=== PATIENT | male | born 1950 | race African-American/Black ===

== ENCOUNTER 2016-07-25 13:59 | Observation (INO) | payer MEDICARE, BC ==
[2016-07-25] MEDS ORDERED: Aspirin Low Dose CHEW TAB* 81 MG ONE (14:16)
[2016-07-25] MEDS ORDERED: Aspirin Low Dose CHEW TAB* 81 MG PO ONE ×2 (14:17→14:18)
[2016-07-25 14:22] LABS: Hematocrit 42 % (42-52); Mean Corpuscular HGB Conc 33 g/dl (31-36); Mean Corpuscular Hemoglobin 27 pg (27-31); Mean Corpuscular Volume 81 fL (80-94); Mean Platelet Volume 10 um3 (7.4-10.4); Red Blood Count 5.19 10^6/ul (4.0-5.4); Red Cell Distribution Width 14 % (10.5-15); White Blood Count 7.9 10^3/ul (3.5-10.8)
--- NOTE | 2016-07-25 14:28 | RAD ---
HISTORY: Chest pain COMPARISONS: None VIEWS:1: Single frontal portable view of the chest at 2:15 PM FINDINGS: LINES AND TUBES: None. CARDIOMEDIASTINAL SILHOUETTE: The cardiomediastinal silhouette is normal for portable technique. PLEURA: The costophrenic angles are sharp. No pleural abnormalities are noted. LUNG PARENCHYMA: The lungs are clear. ABDOMEN: The upper abdomen is clear. There is no subphrenic gas. BONES AND SOFT TISSUES: No bone or soft tissue abnormalities are noted. IMPRESSION: NO ACTIVE CARDIOPULMONARY DISEASE.
[2016-07-25 14:37] LABS: Albumin 4.8 g/dL (3.2-5.2); BUN/Creatinine Ratio 16.7 (8-20); Calcium 10.3 mg/dL (8.6-10.3); EGFR Non-African American 46.7 (>60); Globulin 3.2 g/dL (2-4); Potassium 3.8 mmol/L (3.5-5.0); Total Bilirubin 0.5 mg/dL (0.2-1.0)
[2016-07-25 14:39] LABS: Troponin I 0.01 ng/mL (<0.04)
[2016-07-25 15:17] LABS: Urine Bilirubin Negative (Negative); Urine Glucose Negative (Negative); Urine Nitrite Negative (Negative)
--- NOTE | 2016-07-25 15:21 | ED ---
mango Servin Timothy, scribed for Angelo Nevarez MD on 07/25/16 at 1416 . HPI Chest Pain - HPI Summary HPI Summary: Vishal Hook is a 65 yo male presenting to [facility] with constant 3/10 chest pressure for the past 2 weeks, intermittently increasing and decreasing. He was recommended to present to [facility] for evaluation by his cylinder tester. He denies any N/V/D or other Sx. He was medicated with NTG with some relief. His MHx includes HTN, gout. - History of Current Complaint Chief Complaint: EDChestPainROMI Time Seen by Provider: 07/25/16 14:07 Hx Obtained From: Patient Onset/Duration: Started Weeks Ago, Still Present Timing: Constant, Intermittent - increasing and decreasing pain Initial Severity: Moderate Current Severity: Moderate Pain Intensity: 3 Pain Scale Used: 0-10 Numeric Chest Pain Location: Diffuse Chest Pain Radiates: No Character: Pressure/Squeezing Aggravating Factor(s): Nothing Alleviating Factor(s): Nothing Associated Signs and Symptoms: Positive: Chest Pain. Negative: Nausea, Vomiting - Allergy/Home Medications Allergies/Adverse Reactions: Allergies Allergy/AdvReac Type Severity Reaction Status Date / Time No Known Allergies Allergy Verified 11/03/14 08:04 PMH/Surg Hx/FS Hx/Imm Hx Endocrine/Hematology History: Denies: Hx Diabetes Cardiovascular History: Reports: Hx Hypertension Denies: Hx Angina, Hx Coronary Artery Disease, Hx Hypercholesterolemia, Hx Myocardial Infarction, Hx Valvular Heart Disease Respiratory History: Denies: Hx Asthma, Hx Chronic Obstructive Pulmonary Disease (COPD) GI History: Reports: Other GI Disorders - GOUT-ON MEDICATION FOR Musculoskeletal History: Reports: Other Musculoskeletal History - GOUT Sensory History: Reports: Hx Cataracts - BILATERAL Denies: Hx Contacts or Glasses, Hx Hearing Aid Opthamlomology History: Reports: Hx Cataracts - BILATERAL Denies: Hx Contacts or Glasses - Surgical History Surgery Procedure, Year, and Place: ENDOSCOPY WITH SEDATION Hx Anesthesia Reactions: No Infectious Disease History: No Infectious Disease History: Denies: Traveled Outside the [place] in Last 30 Days - Family History Known Family History: Positive: Cardiac Disease - Social History Alcohol Use: Occasionally Substance Use Type: Reports: None Smoking Status (MU): Never Smoked Tobacco Review of Systems Constitutional: Negative Eyes: Negative ENT: Negative Positive: Chest Pain Respiratory: Negative Gastrointestinal: Negative Genitourinary: Negative Musculoskeletal: Negative Skin: Negative Neurological: Negative Psychological: Normal All Other Systems Reviewed And Are Negative: Yes Physical Exam - Summary Physical Exam Summary: VITAL SIGNS: Reviewed. GENERAL: Patient is a well developed and nourished male who is lying comfortable in the stretcher. Patient is not in any acute respiratory distress. HEAD AND FACE: No signs of trauma. No ecchymosis, hematomas or skull depressions. No sinus tenderness. EYES: PERRLA, EOMI x 2, No injected conjunctiva, no nystagmus. EARS: Hearing grossly intact. Ear canals and tympanic membranes are within normal limits. MOUTH: Oropharynx within normal limits. NECK: Supple, trachea is midline, no adenopathy, no JVD, no carotid bruit, no c- spine tenderness, neck with full ROM. CHEST: Symmetric, no tenderness at palpation LUNGS: Clear to auscultation bilaterally. No wheezing or crackles. CVS: Regular rate and rhythm, S1 and S2 present, no murmurs or gallops appreciated. ABDOMEN: Soft, non-tender. No signs of distention. No rebound no guarding, and no masses palpated. Bowel sounds are normal. EXTREMITIES: FROM in all major joints, no edema, no cyanosis or clubbing. NEURO: Alert and oriented x 3. No acute neurological deficits. Speech is normal and follows commands. SKIN: Dry and warm Triage Information Reviewed: Yes Vital Signs On Initial Exam: Initial Vitals Temp Pulse Resp BP Pulse Ox 98.6 F 71 20 126/62 100 07/25/16 14:00 07/25/16 14:00 07/25/16 14:00 07/25/16 14:00 07/25/16 14:00 Vital Signs Reviewed: Yes Diagnostics - Vital Signs Vital Signs Temp Pulse Resp BP Pulse Ox 07/25/16 14:00 98.6 F 71 20 126/62 100 - Laboratory Lab Results: Lab Results 07/25/16 07/25/16 07/25/16 Range/Units 14:10 14:10 14:10 WBC 7.9 (3.5-10.8) 10^3/ul RBC 5.19 (4.0-5.4) 10^6/ul Hgb 14.0 (14.0-18.0) g/dl Hct 42 (42-52) % MCV 81 (80-94) fL MCH 27 (27-31) pg MCHC 33 (31-36) g/dl RDW 14 (10.5-15) % Plt Count 178 (150-450) 10^3/ul MPV 10 (7.4-10.4) um3 Neut % (Auto) 57.7 (38-83) % Lymph % (Auto) 32.3 (25-47) % [place] % (Auto) 8.2 (1-9) % Eos % (Auto) 0.8 (0-6) % Baso % (Auto) 1.0 (0-2) % Absolute Neuts (auto) 4.6 (1.5-7.7) 10^3/ul Absolute Lymphs (auto) 2.6 (1.0-4.8) 10^3/ul Absolute Monos (auto) 0.7 (0-0.8) 10^3/ul Absolute Eos (auto) 0.1 (0-0.6) 10^3/ul Absolute Basos (auto) 0.1 (0-0.2) 10^3/ul Absolute Nucleated RBC 0.01 10^3/ul Nucleated RBC % 0.1 INR (Anticoag Therapy) 1.04 (0.89-1.11) Sodium 137 (133-145) mmol/L Potassium 3.8 (3.5-5.0) mmol/L Chloride 98 L (101-111) mmol/L Carbon Dioxide 31 (22-32) mmol/L Anion Gap 8 (2-11) mmol/L BUN 25 H (6-24) mg/dL Creatinine 1.50 H (0.67-1.17) mg/dL Est GFR ( Amer) 60.0 (>60) Est GFR (Non-Af Amer) 46.7 (>60) BUN/Creatinine Ratio 16.7 (8-20) Glucose 95 (70-100) mg/dL Lactic Acid (0.5-2.0) mmol/L Calcium 10.3 (8.6-10.3) mg/dL Magnesium 2.0 (1.9-2.7) mg/dL Total Bilirubin 0.50 (0.2-1.0) mg/dL AST 19 (13-39) U/L ALT 17 (7-52) U/L Alkaline Phosphatase 69 (34-104) U/L Total Creatine Kinase 160 (10-223) U/L CK-MB (CK-2) 3.0 (0.6-6.3) ng/mL Troponin I 0.01 (<0.04) ng/mL Total Protein 8.0 (6.4-8.9) g/dL Albumin 4.8 (3.2-5.2) g/dL Globulin 3.2 (2-4) g/dL Albumin/Globulin Ratio 1.5 (1-3) TSH Pending Thyroxine (T4) Pending 07/25/16 Range/Units 14:10 WBC (3.5-10.8) 10^3/ul RBC (4.0-5.4) 10^6/ul Hgb (14.0-18.0) g/dl Hct (42-52) % MCV (80-94) fL MCH (27-31) pg MCHC (31-36) g/dl RDW (10.5-15) % Plt Count (150-450) 10^3/ul MPV (7.4-10.4) um3 Neut % (Auto) (38-83) % Lymph % (Auto) (25-47) % [place] % (Auto) (1-9) % Eos % (Auto) (0-6) % Baso % (Auto) (0-2) % Absolute Neuts (auto) (1.5-7.7) 10^3/ul Absolute Lymphs (auto) (1.0-4.8) 10^3/ul Absolute Monos (auto) (0-0.8) 10^3/ul Absolute Eos (auto) (0-0.6) 10^3/ul Absolute Basos (auto) (0-0.2) 10^3/ul Absolute Nucleated RBC 10^3/ul Nucleated RBC % INR (Anticoag Therapy) (0.89-1.11) Sodium (133-145) mmol/L Potassium (3.5-5.0) mmol/L Chloride (101-111) mmol/L Carbon Dioxide (22-32) mmol/L Anion Gap (2-11) mmol/L BUN (6-24) mg/dL Creatinine (0.67-1.17) mg/dL Est GFR ( Amer) (>60) Est GFR (Non-Af Amer) (>60) BUN/Creatinine Ratio (8-20) Glucose (70-100) mg/dL Lactic Acid 0.7 (0.5-2.0) mmol/L Calcium (8.6-10.3) mg/dL Magnesium (1.9-2.7) mg/dL Total Bilirubin (0.2-1.0) mg/dL AST (13-39) U/L ALT (7-52) U/L Alkaline Phosphatase (34-104) U/L Total Creatine Kinase (10-223) U/L CK-MB (CK-2) (0.6-6.3) ng/mL Troponin I (<0.04) ng/mL Total Protein (6.4-8.9) g/dL Albumin (3.2-5.2) g/dL Globulin (2-4) g/dL Albumin/Globulin Ratio (1-3) TSH Thyroxine (T4) Result Diagrams: 07/25/16 14:10 07/25/16 14:10 Lab Statement: Any lab studies that have been ordered have been reviewed, and results considered in the medical decision making process. - Radiology CXR Xray Interpretation: No Acute Changes - IMPRESSION: NO ACTIVE CARDIOPULMONARY DISEASE. Radiology Interpretation Completed By: Radiologist - EKG 1402 Cardiac Rate: NL - 66 BPM EKG Interpretation: NSR @ 66 BPM, no ST elevation, Twave inversions in I, AVL, VIII-V6 Chest Pain Course/Dx - Course Assessment/Plan: Vishal Hook is a 65 yo male presenting to [facility] with constant 3/10 chest pressure for the past 2 weeks, intermittently increasing and decreasing. He was recommended to present to [facility] for evaluation by his cylinder tester. He denies any N/V/D or other Sx. He was medicated with NTG with some relief. His MHx includes HTN, gout. Blood work wnl except for Increased BUN and creatinine of 25, 1.50. He was given ASA and nitroglycerin at his cylinder tester office and he feels better. Patient continues to be asymptomatic in the ED. I discussed the case with Dr. Dickerson (patients cylinder tester) he recommends for the patient to be admitted to the hospital for further w/o and management. I discuss my physical exam, findings and test results with Dr. Schuster from the hospitalist services and she agrees to admit patient to his services. Patient is hemodynamically stable alert and oriented x 3 - Chest Pain Differential Diagnosis/HQI/PQRI: Acute CA, ACS, Angina, CHF, Chest Wall, GI Disease, Lower Respiratory Infection, Pulmonary Edema - Diagnoses Provider Diagnoses: Chest pain - Provider Notifications Discussed Care Of Patient With: 1447 - Dr. Schuster (hospitalist) - discussed Pt condition, agrees to admit Pt. Instructed by Provider To: Admit As Inpatient Discharge - Discharge Plan Condition: Stable Disposition: ADMITTED TO [facility] Discharge Disposition Comment: Admitted to [facility] for furthher evaluation/care of his CP Referrals: Melvin Hammonds MD [Primary Care Provider] - The documentation as recorded by the mango mccauley Timothy accurately reflects the service I personally performed and the decisions made by me, Angelo Nevarez MD.
[2016-07-25 15:33] LABS: T4 8.71 g/dL (6.09-12.23)
[2016-07-25 15:34] LABS: TSH (Thyroid Stimulating Horm) 1.09 mcIU/mL (0.34-5.60)
[2016-07-25] MEDS ORDERED: Ondansetron INJ* 2 MG/ML VIAL IV PRN (15:38)
[2016-07-25] MEDS ORDERED: Acetaminophen TAB* 325 MG PO PRN (15:38)
[2016-07-25] MEDS: Heparin VIAL(*) 5000 UNITS/ML VIAL (FIVE THOUSAND) SUBCUT SCH (21:01)
--- NOTE | 2016-07-25 21:25 | HP ---
HISTORY AND PHYSICAL: DATE OF ADMISSION: 07/25/16 PRIMARY CARE PROVIDER: Dr. Hammonds ATTENDING PHYSICIAN WHILE IN THE HOSPITAL: Dr. Fidecnio Schuster * (report dictated by Tim Singh NP). CHIEF COMPLAINT: Chest pain. HISTORY OF PRESENT ILLNESS: Mr. Hook is a 65-year-old male patient who has a history of gout, hypertension, hyperlipidemia, rheumatic heart disease, carotid artery disease and also history of BPH. He comes into the ER today stating that over the last 2 weeks, he has had chest discomfort described as a heaviness in the left chest wall. He says that sometimes the heaviness does get worse when he walks, but he has noticed that it has been intermittent, sometimes happens at rest, sometimes with exertion, and he says the frequency, severity or duration has not increased over the last several days, but he was concerned because it was relieved with nitro. He called his primary demolition specialist last week, there he was deferred to the ER evaluation but he did not come in. He went for an appointment today and he again still has some chest discomfort this morning and it was relieved with nitro. At that point, there was concern on his demolition specialist's part, Dr. Dickerson, that the patient should be evaluated for admission. He denies any chest pain now. He says he has not been sick recently. He denies having any abdominal pain. He denies having any nausea. He denies having any vomiting. There has been no worsening pain with inspiration and denies any leg swelling or recent trips or travel. He was evaluated in the ER by Dr. Nevarez. There was concern for the chest discomfort. Hospitalist service was asked to evaluate for admission. PAST MEDICAL HISTORY: Significant for: 1. Gout. 2. Hypertension. 3. Hyperlipidemia. 4. Rheumatic heart disease. 5. CAD. 6. BPH. 7. Carotid artery disease. PAST SURGICAL HISTORY: 1. He has had cataract extraction. 2. He has had a heart catheterization. MEDICATIONS: Home meds according to the list that we were able to obtain include: 1. Colchicine 1 tablet p.o. as directed. 2. Aspirin 81 mg daily. 3. Altace 20 mg daily. 4. Lozol 1.25 mg daily. 5. Amlodipine 5 mg daily. 6. Allopurinol 100 mg p.o. daily. 7. Multivitamin 1 tablet daily. His home medications, according to the pharmacy, include: 1. Norvasc 5 mg daily. 2. Aspirin 81 mg daily. 3. Altace 20 mg daily. 4. Lozol 1.25 mg daily. 5. Allopurinol 100 mg daily. ALLERGIES TO MEDICATIONS: Include no known drug allergies. FAMILY HISTORY: His mother is diabetic. Father had an [place]. SOCIAL HISTORY: He is a former smoker, cigars primarily. Occasionally drinks wine. Surrogate decision maker is his children. REVIEW OF SYSTEMS: There is no documented fever. He denied having any significant weight change. There was no double vision. There is no ear discharge. No rhinorrhea. No sore throat. No thyroid enlargement. Chest pain per my HPI. There is no orthopnea. There is no nocturnal dyspnea. There is no abdominal pain. No nausea, no vomiting. No dysuria. No frequency. No seizure, no loss of consciousness. No pruritus and no skin ulcerations. Review of 14 systems completed, all others negative. PHYSICAL EXAMINATION GENERAL: At this time, Mr. Hook is a 65-year-old male patient. He is sitting in the ER stretcher. He does not appear to be in any acute distress. VITAL SIGNS: Reveal blood pressure of 113/64, pulse of 65, respirations 15, O2 sat 99%, temperature of 98.6. HEENT: Head atraumatic, normocephalic. Eyes: EOMs are intact. Sclerae anicteric and not pale. Throat: Oral mucosa appears to be moist. No oropharyngeal erythema. NECK: Supple. LUNGS: Clear to auscultation. No wheezes, rales, or rhonchi. HEART: Sounds S1, S2. Regular rate and rhythm. No murmurs, rubs, or gallops. ABDOMEN: Soft, flat, nontender. Bowel sounds present. EXTREMITIES: Pulses 2+ throughout. He is able to move all 4 extremities with 5 /5 strength. NEUROLOGIC: The patient is awake, alert, and oriented x3. Tongue midline. Shuttle Threader were equal. No gross focal deficits. SKIN: Grossly intact. LABORATORY DATA: Today revealed WBC of 7.9, RBC of 5.19, hemoglobin 14.0, hematocrit 42, platelet count of 178. INR 1.04. Sodium 127, potassium of 3.8, chloride of 98, bicarb 31, BUN 25, creatinine 1.50, no previous for comparison. Glucose 95, lactate 0.7, calcium 10.3, total bilirubin 2.0, AST 0.5, ALT 19, alk phos 69. CK 160, CK-MB 3, troponin 0.01. Albumin 4.8. TSH 1.09. T4 was 8.71. Urine was negative. He had a chest x-ray showed no active cardiopulmonary disease. There was an EKG, which showed a normal sinus rhythm. He had inverted T waves in V2, 3, 4, 5, and 6, which he has had previously. No significant changes were noted. He has had inverted T waves in lead I and aVL, which I see in his previous EKG as well. Old medical records were reviewed. ASSESSMENT AND PLAN: Mr. Hook is a 65-year-old male patient coming into the ER today with complaints of chest discomfort over the last week into 2 weeks. There is concern for acute coronary syndrome as it was relieved by nitro today. Hospitalist service was asked to evaluate for admission. He will be admitted under observation status for: 1. Chest pain: At this point, he does certainly have risk factors for acute coronary syndrome. We will go ahead and cycle his troponins, check an EKG in the morning, get a lipid panel in the morning, A1c in the morning. He is on an aspirin already. We will continue with this. Check troponin. We will get a stress test in the morning. 2. Hypertension: Continue meds as prescribed. 3. Gout: Continue meds as prescribed. 4. CKD: His creatinine is 1.5. I do not have a previous creatinine for comparison. We will get a urine sodium and creatinine. We will follow. We will try to get old records. 5. Rheumatic heart disease: Follow with his primary. 6. Carotid artery disease: Continue with aspirin. He probably should be on a statin, but I will defer this to the primary as we do not have access to a lipid panel. 7. BPH: Continue meds as prescribed. 8. DVT prophylaxis: He will be placed on heparin subcu. 9. Code status: Full code. 10. Fluid, electrolyte, nutrition: He can have a heart healthy diet. TIME SPENT: Time spent on this admission was 60 minutes, greater than half the time was spent [id number] with the patient obtaining my history and physical; the other half the time was spent going over the plan of care with the patient and implementing the plan of care. I did discuss the plan of care with my attending, Dr. Schuster; he is in agreement. TIM SINGH NP CC: Dr. Hammonds * [id number]/CPS #: [id number] [facility]ERSancho
[2016-07-26] MEDS: Heparin VIAL(*) 5000 UNITS/ML VIAL (FIVE THOUSAND) SUBCUT SCH (05:34)
[2016-07-26 05:42] LABS: Hematocrit 41 % (42-52); Hemoglobin 13.7 g/dl (14.0-18.0); Mean Corpuscular HGB Conc 33 g/dl (31-36); Mean Corpuscular Hemoglobin 27 pg (27-31); Mean Corpuscular Volume 80 fL (80-94); Mean Platelet Volume 10 um3 (7.4-10.4); Red Blood Count 5.16 10^6/ul (4.0-5.4); Red Cell Distribution Width 15 % (10.5-15); White Blood Count 6.3 10^3/ul (3.5-10.8)
[2016-07-26 05:59] LABS: BUN/Creatinine Ratio 16.3 (8-20); Calcium 9.8 mg/dL (8.6-10.3); EGFR African American 64.5 (>60); EGFR Non-African American 50.1 (>60); HDL Cholesterol 33.4 mg/dL; Potassium 3.8 mmol/L (3.5-5.0)
[2016-07-26 08:25] VITALS: BP 132/76
[2016-07-26] MEDS ORDERED: amLODIPine TAB* 5 MG PO SCH (09:00)
[2016-07-26] MEDS ORDERED: Aspirin Low Dose CHEW TAB* 81 MG PO SCH (09:00)
[2016-07-26] MEDS ORDERED: Ramipril CAP* 10 MG PO SCH (09:00)
--- NOTE | 2016-07-26 12:00 | RAD ---
HISTORY: Chest pain COMPARISONS: July 26, 2012 TECHNIQUE: A 1 day stress/rest myocardial perfusion study was performed, with exercise stress. The exercise portion was performed using the Viktor protocol, for a total METs of 12.8. The stress portion was monitored by Dr. Mckeon. Gated SPECT imaging was performed, with CT-based attenuation correction DOSE: Stress: Technetium 99m tetrofosmin, 24.85 millicuries, injected at 10:47 AM on July 26, 2016 Rest: Technetium 99m tetrofosmin, 10.67 millicuries, injected at 6:35 AM on July 26, 2016 Pharmacologic agent: None FINDINGS: CARDIAC MONITORING: Peak heart rate of 130 bpm, 90% of predicted. No EKG changes of ischemia with stress. EF: 68 % TID: 0.93 MOTION: Normal motion, with normal wall thickening. PERFUSION: There are no fixed or reversible perfusion defects. OTHER: None IMPRESSION: NO FIXED OR REVERSIBLE PERFUSION DEFECTS. ASSESSMENT: LOW RISK. Based on imaging criteria from ACC/AHA 2002. Guideline Update for the Management of Patient's with Chronic Stable Angina, table 23. Noninvasive Risk Stratification.
--- NOTE | 2016-07-26 13:53 | PN ---
Subjective Date of Service: 07/26/16 Interval History: Patient seen and examined at bedside. He denies any further chest pain overnight or today. He denies SOB, abd pain, n/v. He is eager to go home. Patient was receptive to discussion and teaching re: elevated TG, type 2 diabetes, and decreasing smoking. He would like to try to continue modification of his diet to address his lipids. However, he is open to starting metformin for his diabetes and having follow-up with his PCP. We discussed having him f/u with [facility] as well in order to receive further teaching and to learn how to use a glucometer. The patient was also notified about his elevated creatinine and concern for this in the presence of HTN, DM. Telemetry: SR 60s-70s Family History: Unchanged from Admission Social History: Unchanged from Admission Past Medical History: Unchanged from Admission Objective Active Medications: Acetaminophen (Tylenol Tab*) 650 mg PO Q4H PRN PRN Reason: FEVER/PAIN Amlodipine Besylate (Norvasc Tab*) 5 mg PO DAILY [facility] Aspirin (Aspirin Low Dose Tab*) 81 mg PO DAILY [facility] Heparin Sodium (Porcine) (Heparin Vial(*)) 5,000 units SUBCUT Q8HR [facility] Last Admin: 07/26/16 05:34 Dose: 5,000 units Ondansetron HCl (Zofran Inj*) 4 mg IV Q6H PRN PRN Reason: NAUSEA Ramipril (Altace Cap*) 20 mg PO QAM [facility] Vital Signs 07/25/16 07/25/16 07/25/16 15:30 16:00 19:21 Temperature 98.8 F Pulse Rate 65 68 64 Respiratory 15 14 16 Rate Blood Pressure 150/74 128/91 149/72 (mmHg) O2 Sat by Pulse 98 97 100 Oximetry 07/25/16 07/25/16 07/26/16 19:27 23:36 03:41 Temperature 99.3 F 98.3 F 98.4 F Pulse Rate 54 63 58 Respiratory 16 16 Rate Blood Pressure 121/76 118/69 121/72 (mmHg) O2 Sat by Pulse 100 100 100 Oximetry 07/26/16 07/26/16 07/26/16 07:25 08:24 11:31 Temperature 98.4 F Pulse Rate 53 58 Respiratory 16 14 Rate Blood Pressure 130/62 132/76 (mmHg) O2 Sat by Pulse 97 97 99 Oximetry Oxygen Devices in Use Now: None Appearance: Male patient, OOB to chair, pleasant, in NAD Eyes: PERRLA Ears/Nose/Mouth/Throat: Clear Oropharnyx, Mucous Membranes Moist Neck: NL Appearance and Movements; NL JVP Respiratory: Symmetrical Chest Expansion and Respiratory Effort, Clear to Auscultation Cardiovascular: NL Sounds; No Murmurs; No JVD, RRR Abdominal: NL Sounds; No Tenderness; No Distention Extremities: No Edema Skin: No Rash or Ulcers Neurological: Alert and Oriented x 3 Lines/Tubes/Other Access: Clean, Dry and Intact Peripheral IV Nutrition: Taking PO's Result Diagrams: 07/26/16 04:56 07/26/16 04:59 Additional Lab and Data: Lab Results 07/25/16 07/25/16 07/25/16 Range/Units 14:10 14:10 14:10 WBC 7.9 (3.5-10.8) 10^3/ul RBC 5.19 (4.0-5.4) 10^6/ul Hgb 14.0 (14.0-18.0) g/dl Hct 42 (42-52) % MCV 81 (80-94) fL MCH 27 (27-31) pg MCHC 33 (31-36) g/dl RDW 14 (10.5-15) % Plt Count 178 (150-450) 10^3/ul MPV 10 (7.4-10.4) um3 Neut % (Auto) 57.7 (38-83) % Lymph % (Auto) 32.3 (25-47) % [place] % (Auto) 8.2 (1-9) % Eos % (Auto) 0.8 (0-6) % Baso % (Auto) 1.0 (0-2) % Absolute Neuts (auto) 4.6 (1.5-7.7) 10^3/ul Absolute Lymphs (auto) 2.6 (1.0-4.8) 10^3/ul Absolute Monos (auto) 0.7 (0-0.8) 10^3/ul Absolute Eos (auto) 0.1 (0-0.6) 10^3/ul Absolute Basos (auto) 0.1 (0-0.2) 10^3/ul Absolute Nucleated RBC 0.01 10^3/ul Nucleated RBC % 0.1 INR (Anticoag Therapy) 1.04 (0.89-1.11) Sodium 137 (133-145) mmol/L Potassium 3.8 (3.5-5.0) mmol/L Chloride 98 L (101-111) mmol/L Carbon Dioxide 31 (22-32) mmol/L Anion Gap 8 (2-11) mmol/L BUN 25 H (6-24) mg/dL Creatinine 1.50 H (0.67-1.17) mg/dL Est GFR ( Amer) 60.0 (>60) Est GFR (Non-Af Amer) 46.7 (>60) BUN/Creatinine Ratio 16.7 (8-20) Glucose 95 (70-100) mg/dL Lactic Acid (0.5-2.0) mmol/L Calcium 10.3 (8.6-10.3) mg/dL Magnesium 2.0 (1.9-2.7) mg/dL Total Bilirubin 0.50 (0.2-1.0) mg/dL AST 19 (13-39) U/L ALT 17 (7-52) U/L Alkaline Phosphatase 69 (34-104) U/L Total Creatine Kinase 160 (10-223) U/L CK-MB (CK-2) 3.0 (0.6-6.3) ng/mL Troponin I 0.01 (<0.04) ng/mL Total Protein 8.0 (6.4-8.9) g/dL Albumin 4.8 (3.2-5.2) g/dL Globulin 3.2 (2-4) g/dL Albumin/Globulin Ratio 1.5 (1-3) TSH Pending Thyroxine (T4) Pending 07/25/16 Range/Units 14:10 WBC (3.5-10.8) 10^3/ul RBC (4.0-5.4) 10^6/ul Hgb (14.0-18.0) g/dl Hct (42-52) % MCV (80-94) fL MCH (27-31) pg MCHC (31-36) g/dl RDW (10.5-15) % Plt Count (150-450) 10^3/ul MPV (7.4-10.4) um3 Neut % (Auto) (38-83) % Lymph % (Auto) (25-47) % [place] % (Auto) (1-9) % Eos % (Auto) (0-6) % Baso % (Auto) (0-2) % Absolute Neuts (auto) (1.5-7.7) 10^3/ul Absolute Lymphs (auto) (1.0-4.8) 10^3/ul Absolute Monos (auto) (0-0.8) 10^3/ul Absolute Eos (auto) (0-0.6) 10^3/ul Absolute Basos (auto) (0-0.2) 10^3/ul Absolute Nucleated RBC 10^3/ul Nucleated RBC % INR (Anticoag Therapy) (0.89-1.11) Sodium (133-145) mmol/L Potassium (3.5-5.0) mmol/L Chloride (101-111) mmol/L Carbon Dioxide (22-32) mmol/L Anion Gap (2-11) mmol/L BUN (6-24) mg/dL Creatinine (0.67-1.17) mg/dL Est GFR ( Amer) (>60) Est GFR (Non-Af Amer) (>60) BUN/Creatinine Ratio (8-20) Glucose (70-100) mg/dL Lactic Acid 0.7 (0.5-2.0) mmol/L Calcium (8.6-10.3) mg/dL Magnesium (1.9-2.7) mg/dL Total Bilirubin (0.2-1.0) mg/dL AST (13-39) U/L ALT (7-52) U/L Alkaline Phosphatase (34-104) U/L Total Creatine Kinase (10-223) U/L CK-MB (CK-2) (0.6-6.3) ng/mL Troponin I (<0.04) ng/mL Total Protein (6.4-8.9) g/dL Albumin (3.2-5.2) g/dL Globulin (2-4) g/dL Albumin/Globulin Ratio (1-3) TSH Thyroxine (T4) Assess/Plan/Problems-Billing Assessment: Mr. Hook is a 65 yo male with a PMH of gout, HTN, HLD, rheumatic heart disease, CAD, and BPH who presented to the ED with chest discomfort x 2 weeks. - Patient Problems (1) Chest pain Code(s): R07.9 - CHEST PAIN, UNSPECIFIED Comment: Troponins 0.01, 0.01, and 0.02 respectively No new significant changes to EKG Stress test shows no EKG changes of ischemia with stress, normal motion, normal wall thickening, and no fixed or reversible perfusion defects. Discussed modification of risk factors with patient, including smoking, HLD, DM. [facility] f/u upon discharge. (2) Diabetes mellitus Code(s): E11.9 - TYPE 2 DIABETES MELLITUS WITHOUT COMPLICATIONS Comment: HgbA1c 6.7 Start low dose metformin. [facility]. (3) Elevated serum creatinine Code(s): R79.89 - OTHER SPECIFIED ABNORMAL FINDINGS OF BLOOD CHEMISTRY Comment : Unsure of chronicity of this. Suspect CKD in presence of HTN and DM. F/u BMP next week with PCP. Outpatient f/u. (4) HTN (hypertension) Code(s): I10 - ESSENTIAL (PRIMARY) HYPERTENSION Comment: Normotensive. Continue ramipril and amlodipine. (5) HLD (hyperlipidemia) Code(s): E78.5 - HYPERLIPIDEMIA, UNSPECIFIED Comment: Elevated triglycerides and LDLS. Discussed with patient, who would like to continue diet modifications and discuss addition of medications with PCP. (6) CAD (coronary artery disease) Code(s): I25.10 - ATHSCL HEART DISEASE OF [place] CORONARY ARTERY W/O ANG PCTRS Comment: Continue ASA. (7) BPH (benign prostatic hyperplasia) Code(s): N40.0 - BENIGN PROSTATIC HYPERPLASIA WITHOUT LOWER URINRY TRACT SYMP (8) Gout Code(s): M10.9 - GOUT, UNSPECIFIED Comment: Stable. Continue allopurinol. (9) DVT prophylaxis Code(s): FHM9838 - Comment: SQ heparin Status and Disposition: OBV admit. D/c to home.
--- NOTE | 2016-07-27 05:57 | DS ---
MEDICINE DISCHARGE SUMMARY: DATE OF ADMISSION: 07/25/16 DATE OF DISCHARGE: 07/26/16 PROVIDER: Jenna Candelaria NP ATTENDING PHYSICIAN: Dr. Rogelio Deras *(as dictated by Jenna Candelaria NP). PRIMARY CARE PHYSICIAN: Dr. Melvin Hammonds. PRIMARY DISCHARGE DIAGNOSES: 1. Chest pain. 2. Type 2 diabetes, hemoglobin A1c of 6.7. 3. Hyperlipidemia. SECONDARY DISCHARGE DIAGNOSES: 1. Hypertension. 2. Hyperlipidemia. 3. Gout. 4. Coronary artery disease. 5. History of rheumatic heart disease. 6. Benign prostatic hyperplasia. MEDICATIONS ON DISCHARGE: 1. Allopurinol 100 mg daily. 2. Colchicine with probenecid 1 tab daily. 3. Indapamide 1.25 mg daily. 4. Amlodipine 5 mg daily. 5. Aspirin 81 mg daily. 6. Ramipril 20 mg q.a.m. 7. Metformin 500 mg daily. This is a new medication. DIAGNOSTIC TESTING DURING THE PATIENT'S COURSE OF STAY: Chest x-ray from personally reviewed, no active cardiopulmonary disease. Nuclear medicine scan findings: Cardiac monitoring peak heart rate of 130 beats per minute, 90% of predicted. No EKG changes of ischemia with stress. EF 68%. TID 0.93. Motion: Normal motion, with normal wall thickening. Perfusion : There are no fixed or reversible perfusion defects. Impression: No fixed or reversible perfusion defects. Assessment: Low risk. Observations: During exercise stress test, the patient reached regular heart rate, achieved usual work load. Observations: No reproduction of chest heaviness. Normal resting BP, exaggerated response, off all a.m. medications. ECG shows NSR, inverted T-waves across the anterior and inferior leads. No significant ST changes with testing, T-wave normalization with testing. Occasional PVCs, B couplets, and PACs with testing. Conclusion: No inducible ischemia by ECG criteria, although baseline ECG changes on interpretation. Compare with nuclear data for final ischemic interpretation. HOSPITAL COURSE OF STAY: For full details, please refer to the old medical records including the H and P provided by Angel Singh NP, on 07/25/16. In summary, Mr. Hook is a 65-year-old male patient who has had chest discomfort, described as heaviness in the left chest wall over the last 2 weeks. This sometimes worsens with walking, but he has noticed that it has been intermittent, sometimes occurring with rest and exertion. He had initially called his life trainer, Dr. Dickerson, last week and was referred to the ER. The patient did not come in at that time. He went to his appointment on 07/25/16 and expressed his concern again and he was again referred to the ER by Dr. Dickerson. During his admission here, he has continued to deny chest pain. His troponin remained relatively flat at 0.01, 0.01, and 0.02 respectively. His EKGs show some T-wave inversions in leads 1 and aVL as well as V2, 3, 4, 5, and 6, which are present in previous EKGs. The patient ruled out for ACS with a stress test as previously mentioned. I did review these results with the patient and we discussed modifying his risk factors. He states that he does smoke on occasion and I did discuss the benefits of smoking cessation, which he is receptive to. We also discussed his A1c being elevated at 6.7, which indicates early type 2 diabetes. I am unable to obtain a diabetes education counselor prior to discharge, but I did speak with Viviana Gamboa, who will have her office call the patient for followup in the outpatient setting. The patient was receptive to teaching and I did explain that with his elevated creatinine, this may indicates him getting kidney dysfunction, although it is difficult to tell without prior baseline labs. The patient was interested in starting an oral medication to help control his blood sugar and I started him on low-dose metformin once a day and informed him of the side effects and that he should try to take with food in order to avoid the GI side effects that are typically seen with this medication. In terms of hyperlipidemia, he states that he is already aware of this. He has been working with Dr. Hammonds. He would like to hold off on starting any statin medications until he discusses this with Dr. Hammonds and is hopeful that he can continue to control this with diet and exercise. No other concerns were expressed by the patient. I did order a BMP to be drawn next week. He can have this done at his primary care physician's office as they do have a lab there. CONCERNS AT DISCHARGE: Mr. Hook will be discharged to home on 07/26/16 with a plan to follow up with Dr. Hammonds's office on 08/01/16. He will also have outpatient referral for [facility] for his new diabetic teaching and glucometer teaching. They will call him to arrange this. DIET: Heart healthy, consistent carbohydrate diet. Avoid added sugars. ACTIVITY: As tolerated. CONDITION: Stable. DISPOSITION: To home. TIME SPENT: Time spent on this discharge was approximately 45 minutes. Again, this is only a brief summary of the patient's hospital course of stay. For full details, please refer to the full medical record. If you have any further questions and need further assistance, please feel free to contact me at . JENNA CANDELARIA NP CC: Dr. Melvin Hammonds * [id number]/CPS #: [id number]
== END 2016-07-26 14:20 | disposition home or self-care (01) ==
LOC: ED 13:59 → MEDTELE 15:05
PROVIDERS: ADMIT Internal Medicine; ATTEND Hospitalist
DX: R07.9 Chest pain, unspecified (principal); E11.9 Type 2 diabetes mellitus without complications; E78.5 Hyperlipidemia, unspecified; I10 Essential (primary) hypertension; I25.10 Atherosclerotic heart disease of native coronary artery without angina pectoris; M10.9 Gout, unspecified; N40.0 Benign prostatic hyperplasia without lower urinary tract symptoms; I77.89 Other specified disorders of arteries and arterioles; I09.9 Rheumatic heart disease, unspecified; R79.89 Other specified abnormal findings of blood chemistry; Z79.84 Long term (current) use of oral hypoglycemic drugs; Z79.82 Long term (current) use of aspirin; Z79.899 Other long term (current) drug therapy; Z87.891 Personal history of nicotine dependence; R94.31 Abnormal electrocardiogram [ECG] [EKG]
CPT/HCPCS: 36415; 71010; 78452; 80048; 80053; 80061; 81003; 82550; 82553; 82570; 83036; 83605; 83735; 83880; 84300; 84436; 84443; 84484; 85025; 85610; 93005; 93017; 94760; 96372; 99283; A9270-GY; A9502; G0378; J1644